=== PATIENT | male | born 2000 | race African-American/Black ===

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

== ENCOUNTER 2024-04-29 15:48 | Emergency (ER) | payer SELFPAY ==
[2024-04-30 13:59] LABS: Chlam.trachomatis by PCR,Urine Not Detected (NotDetected); GC N.gonorrhoeae PCR,UrineVOID Not Detected (NotDetected)
== END 2024-04-29 16:01 | disposition home or self-care (01) ==
LOC: ERS 15:48
DX: Z11.3 Encounter for screening for infections with a predominantly sexual mode of transmission (principal); F17.210 Nicotine dependence, cigarettes, uncomplicated
CPT/HCPCS: 87491; 87591; 99283